=== PATIENT | female | born 1970 ===

== ENCOUNTER 2017-07-31 09:15 | Emergency (ER) | payer BC ==
[2017-07-31 09:42] VITALS: O2SAT 100
[2017-07-31 10:11] LABS: RBC URINE 6 /hpf (0-3); URINE BILIRUBIN NEGATIVE (NEGATIVE); URINE BLOOD 2+ (NEGATIVE); URINE COLOR Yellow (YELLOW); URINE GLUCOSE (UA) NORMAL (Normal); URINE KETONE NEGATIVE (NEGATIVE); URINE LEUKOCYTE ESTERASE NEG Leu/uL (Negative); URINE PROTEIN NEGATIVE (NEGATIVE); URINE UROBILINOGEN NORMAL mg/dL (0.2-1.0); WBC URINE 1 /hpf (0-5)
[2017-07-31] MEDS ORDERED: Iohexol 240 (50 ml) PO ONE (10:12)
--- NOTE | 2017-07-31 10:12 | C.PDOC ---
History Of Present Illness 46 year old female, with a past surgical history of Gastric Bypoass in 2012 and Lap Band in 2008, presents to the ED with complaints of abdominal pain, lower back pain radiating to bilateral legs, vaginal spotting, nausea, and constipation for two weeks. Patient states when symptoms began she also had dysuria and visited her doctor who diagnosed her with a UTI. She was started on Cipro for 7 days and completed it on six days ago. Patient was also sent for US of abdomen at [facility] and is unsure of the results. LMP was June and states she has been taking Motrin for pain with minimal relief. She denies vomiting, diarrhea, and dysuria has resolved. Time Seen by Provider: 07/31/17 09:46 Chief Complaint (Nursing): Female Genitourinary History Per: Patient History/Exam Limitations: no limitations Onset/Duration Of Symptoms: Days (7 days ) Current Symptoms Are (Timing): Still Present Quality Of Discomfort: "Pain" ( ) Associated Symptoms: Nausea, Loss Of Appetite, Back Pain, Constipation, Urinary Symptoms. denies: Fever, Vomiting, Diarrhea Recent travel outside of the [place]: No Abnormal Vaginal Bleeding: Yes Past Medical History Reviewed: Historical Data, Nursing Documentation, Vital Signs Vital Signs: Last Vital Signs Temp 97.7 F 07/31/17 09:39 Pulse 67 07/31/17 09:39 Resp 16 07/31/17 09:39 BP 123/85 07/31/17 09:39 Pulse Ox 100 07/31/17 14:29 Family History: States: Other Other Family History: Non-contributory. Review Of Systems Except As Marked, All Systems Reviewed And Found Negative. Gastrointestinal: Negative for: Vomiting Genitourinary: Negative for: Dysuria Physical Exam - Physical Exam Appears: Non-toxic, No Acute Distress Skin: Warm, Dry Head: Atraumatic Eye(s): bilateral: PERRL, EOMI Neck: Normal ROM, Supple Chest: Symmetrical, No Deformity Cardiovascular: Rhythm Regular, No Murmur Respiratory: No Accessory Muscle Use, No Rales, No Rhonchi, No Wheezing Gastrointestinal/Abdominal: Bowel Sounds (good bowel sounds ), Soft, Tenderness (diffuse tenderness), No Distention, No Guarding, No Rebound Back: No CVA Tenderness Extremity: No Tenderness Neurological/Psych: Oriented x3 ED Course And Treatment - Laboratory Results Result Diagrams: 07/31/17 10:29 07/31/17 10:29 O2 Sat by Pulse Oximetry: 100 (room air ) - CT Scan/US CT Abdomen and Pelvis with oral and IV contrast Other Rad Studies (CT/US): Read By Radiologist, Radiology Report Reviewed CT/US Interpretation: FINDINGS: LOWER THORAX: No visible consolidation, pleural effusion, or pneumothorax. Small hiatal hernia/distal esophageal wall thickening. LIVER: Unremarkable. GALLBLADDER AND BILE DUCTS: Cholecystectomy. PANCREAS: Unremarkable. SPLEEN: Unremarkable. ADRENALS: Unremarkable. KIDNEYS AND URETERS: The kidneys enhance symmetrically. No hydronephrosis or obstructing renal calculus. BLADDER: Under distended urinary bladder limits evaluation. REPRODUCTIVE: Uterus is present. APPENDIX : The appendix appears within normal limits of caliber. No secondary signs of acute appendicitis. BOWEL: Gastric surgery. Gastric lap band with evidence of slippage. Correlate clinically. Mild wall thickening of the right colon near the hepatic flexure and proximal transverse colon. The bowel loops appear within normal limits of caliber without evidence of intestinal obstruction. PERITONEUM: Trace pelvic free fluid. No definite free air. LYMPH NODES: No bulky lymphadenopathy identified. VASCULATURE: No aortic aneurysm. BONES: Degenerative changes. OTHER FINDINGS: None. IMPRESSION: Evidence of gastric lap band slippage. Correlate clinically. Mild wall thickening of the right colon near the hepatic flexure and proximal transverse colon; correlate clinically for possibility of colitis. Cholecystectomy. Trace pelvic free fluid. Medical Decision Making Medical Decision Makinpm disc results w pt includ plan for f/u w GI and also w surgeon for lap band slippage. Disposition - Disposition Disposition: HOME/ ROUTINE Disposition Time: 14:28 Condition: GOOD Forms: [employer] (Mozambican) - Clinical Impression Clinical Impression: Colitis - Scribe Statement The provider has reviewed the documentation as recorded by the Scribe Tracie Bryan All medical record entries made by the Herbibivone were at my direction and personally dictated by me. I have reviewed the chart and agree that the record accurately reflects my personal performance of the history, physical exam, medical decision making, and the department course for this patient. I have also personally directed, reviewed, and agree with the discharge instructions and disposition.
[2017-07-31] MEDS ORDERED: Iohexol 240 (50 ml) ONE (10:14)
[2017-07-31 10:32] LABS: BASO # 0.1 K/uL (0.0-0.2); BASO % 1.1 % (0.0-2.0); EOS # 0.2 K/uL (0.0-0.7); EOS % 3.7 % (0.0-4.0); HEMATOCRIT 41.9 % (34.0-47.0); LYMPH # 1.2 K/uL (1.0-4.3); LYMPH % 25.3 % (20.0-40.0); MEAN CELL VOLUME 94.3 fL (81.0-99.0); MEAN CORPUSCULAR HEMOGLOBIN 31.9 pg (27.0-31.0); MEAN CORPUSCULAR HGB CONC 33.8 g/dL (33.0-37.0); MEAN PLATELET VOLUME 8.4 fL (7.2-11.7); MONO # 0.3 K/uL (0.0-0.8); MONO % 7.4 % (0.0-10.0); NRBC % 0.1 % (0.0-2.0); RED CELL DISTRIBUTION WIDTH 12.8 % (11.5-14.5); WHITE BLOOD COUNT 4.7 K/uL (4.8-10.8)
[2017-07-31 10:44] LABS: ALB/GLOB RATIO 1.3 (1.0-2.1); ALKALINE PHOSPHATASE 68 U/L (38-126); ALT/SGPT 43 U/L (9-52); AST/SGOT 29 U/L (14-36); BILIRUBIN,TOTAL 1.2 mg/dL (0.2-1.3); BLOOD UREA NITROGEN 9 mg/dL (7-17); CALCIUM 8.8 mg/dl (8.6-10.4); CARBON DIOXIDE 27 mmol/L (22-30); CHLORIDE 98 mmol/L (98-107); GFR AFRICAN-AMERICAN > 60; GLUCOSE,RANDOM 69 mg/dL (65-105); POTASSIUM 3.7 mmol/L (3.6-5.2); SODIUM 141 mmol/L (132-148); TOTAL PROTEIN 7.7 g/dL (6.3-8.3)
[2017-07-31] MEDS ORDERED: Iodixanol 320 MG/ML 100 ML BOTTLE IV ONE (13:08)
--- NOTE | 2017-07-31 14:16 | CT ---
PROCEDURE: CT Abdomen and Pelvis with oral and IV contrast. HISTORY: abd pain hx of gastric bypass COMPARISON: None available. TECHNIQUE: Contiguous axial images of the abdomen and pelvis. Oral and IV contrast was administered. Coronal and Sagittal reformats generated and reviewed. Contrast dose: 100 mL Visipaque Radiation dose: Total exam DLP = 303.67 mGy-cm. This CT exam was performed using one or more of the following dose reduction techniques: Automated exposure control, adjustment of the mA and/or kV according to patient size, and/or use of iterative reconstruction technique. FINDINGS: LOWER THORAX: No visible consolidation, pleural effusion, or pneumothorax. Small hiatal hernia/distal esophageal wall thickening. LIVER: Unremarkable. GALLBLADDER AND BILE DUCTS: Cholecystectomy. PANCREAS: Unremarkable. SPLEEN: Unremarkable. ADRENALS: Unremarkable. KIDNEYS AND URETERS: The kidneys enhance symmetrically. No hydronephrosis or obstructing renal calculus. BLADDER: Under distended urinary bladder limits evaluation. REPRODUCTIVE: Uterus is present. APPENDIX: The appendix appears within normal limits of caliber. No secondary signs of acute appendicitis. BOWEL: Gastric surgery. Gastric lap band with evidence of slippage. Correlate clinically. Mild wall thickening of the right colon near the hepatic flexure and proximal transverse colon. The bowel loops appear within normal limits of caliber without evidence of intestinal obstruction. PERITONEUM: Trace pelvic free fluid. No definite free air. LYMPH NODES: No bulky lymphadenopathy identified. VASCULATURE: No aortic aneurysm. BONES: Degenerative changes. OTHER FINDINGS: None. IMPRESSION: Evidence of gastric lap band slippage. Correlate clinically. Mild wall thickening of the right colon near the hepatic flexure and proximal transverse colon; correlate clinically for possibility of colitis. Cholecystectomy. Trace pelvic free fluid.
[2017-07-31 18:31] VITALS: BP 134/72; PULSE 72; RESP 18; TEMP 98.2
== END 2017-07-31 14:40 | disposition home or self-care (01) ==
LOC: C.ER 09:15
DX: K52.9 Noninfective gastroenteritis and colitis, unspecified (principal)
CPT/HCPCS: 74177; 80053; 81001; 83690; 84703; 85025; 87086; 99285; Q9966; Q9967

== ENCOUNTER 2017-08-30 07:24 | Day surgery (SDC) | payer BC ==
[2017-08-30 08:13] VITALS: BMI 22.4
[2017-08-30] MEDS ORDERED: Propofol 10 mg/ml Inj (20 ML) ONE (10:18)
[2017-08-30] MEDS ORDERED: Atropine Sulfate 0.4 mg/ml (0.8mg/2ml) Syringe IV ONE (10:30)
[2017-08-30] MEDS ORDERED: Lactated Ringer's 500 ML IV SCH (10:45)
[2017-08-30 11:15] VITALS: TEMP 98; O2SAT 100
[2017-08-30 12:53] VITALS: BP 117/63; PULSE 45; RESP 16
== END 2017-08-30 12:10 | disposition home or self-care (01) ==
LOC: C.ENDO 07:24
PROVIDERS: ATTEND Internal Medicine Gastroenterology
DX: D12.5 Benign neoplasm of sigmoid colon (principal); D12.3 Benign neoplasm of transverse colon; K64.8 Other hemorrhoids
CPT/HCPCS: 45388; 84703; 88305; J2704; J7120

== ENCOUNTER 2018-05-22 12:45 | Emergency (ER) | payer BC ==
[2018-05-22 12:46] VITALS: BMI 22.4
[2018-05-22 13:15] VITALS: BP 125/83; PULSE 64; RESP 20; TEMP 97.8; O2SAT 100
[2018-05-22 13:52] LABS: HCG,QUALITATIVE URINE NEGATIVE (NEGATIVE)
[2018-05-22 13:56] LABS: URINE BILIRUBIN NEGATIVE (NEGATIVE); URINE BLOOD 1+ (NEGATIVE); URINE CLARITY Clear (Clear); URINE COLOR Straw (YELLOW); URINE GLUCOSE (UA) NORMAL (Normal); URINE LEUKOCYTE ESTERASE TRACE Leu/uL (Negative); URINE PROTEIN NEGATIVE (NEGATIVE); URINE UROBILINOGEN NORMAL mg/dL (0.2-1.0)
[2018-05-22 13:57] LABS: SQUAMOUS EPITHIAL 3 /hpf (0-5); URINE BACTERIA RARE (<OCC)
--- NOTE | 2018-05-22 14:14 | C.PDOC ---
History Of Present Illness 47 y/o female with history of UTI presents to ED with c/o low abdominal pain for 1 week associated with urinary frequency. Patient reports right flank pain and denies fever, vomiting, dysuria, hematuria or vaginal discharge. Time Seen by Provider: 05/22/18 13:26 Chief Complaint (Nursing): Abdominal Pain History Per: Patient History/Exam Limitations: no limitations Onset/Duration Of Symptoms: Days Current Symptoms Are (Timing): Still Present Past Medical History Reviewed: Historical Data, Nursing Documentation, Vital Signs Vital Signs: Last Vital Signs Temp 97.8 F 05/22/18 13:12 Pulse 64 05/22/18 13:12 Resp 20 05/22/18 13:12 BP 125/83 05/22/18 13:12 Pulse Ox 100 05/22/18 15:06 - Medical History PMH: Anemia, Anxiety Surgical History: Cholecystectomy Family History: States: No Known Family Hx - Social History Hx Alcohol Use: Yes Hx Substance Use: No - Immunization History Hx Tetanus Toxoid Vaccination: Yes Hx Influenza Vaccination: Yes Hx Pneumococcal Vaccination: No Review Of Systems Constitutional: Negative for: Fever, Chills Gastrointestinal: Positive for: Abdominal Pain. Negative for: Nausea, Vomiting Genitourinary: Positive for: Frequency. Negative for: Dysuria, Vaginal Discharge Musculoskeletal: Negative for: Back Pain Skin: Negative for: Rash Physical Exam - Physical Exam Appears: Non-toxic, No Acute Distress Skin: Warm, Dry, No Rash Head: Atraumatic, Normacephalic Eye(s): bilateral: Normal Inspection Oral Mucosa: Moist Neck: Normal ROM, Supple Cardiovascular: Rhythm Regular Respiratory: Normal Breath Sounds, No Rales, No Rhonchi, No Wheezing Gastrointestinal/Abdominal: Soft, Tenderness (Mild suprapubic ), No Guarding, No Rebound Back: No CVA Tenderness Neurological/Psych: Oriented x3, Normal Speech ED Course And Treatment O2 Sat by Pulse Oximetry: 100 (RA) Pulse Ox Interpretation: Normal Medical Decision Making Medical Decision Making: Impression: urinary urgency Plan: * UA * UCG Progress: UA shows LE, blood and bacteria. Patient is symptomatic will treat with Bactrim. Patient has no clinical signs of pyelonephritis or renal colic. Recommend fluids and will discharge with Rx. Disposition Counseled Patient/Family Regarding: Diagnosis, Need For Followup, Rx Given - Disposition Referrals: Micheal Soria MD [Staff Provider] - Jose Daniels MD [Staff Provider] - Disposition: HOME/ ROUTINE Disposition Time: 14:12 Condition: STABLE Additional Instructions: Follow up with your primary medical doctor or clinic in 2-5 days for further evaluation. Take medications as prescribed. Return to the emergency department at any time if symptoms persist or worsen. 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 - Scribe Statement The provider has reviewed the documentation as recorded by the Herbibivone Hart All medical record entries made by the Herbibivone were at my direction and personally dictated by me. I have reviewed the chart and agree that the record accurately reflects my personal performance of the history, physical exam, medical decision making, and the department course for this patient. I have also personally directed, reviewed, and agree with the discharge instructions and disposition.
== END 2018-05-22 14:32 | disposition home or self-care (01) ==
LOC: C.ER 12:45
DX: N30.90 Cystitis, unspecified without hematuria (principal)